=== PATIENT | female | born 1995 | race Caucasian/White ===

== ENCOUNTER 2019-10-03 23:44 | Emergency (ER) | payer MEDICAID ==
[~2019-10-03] VITALS: Ht 165.1 cm; Wt 69.4 kg
[2019-10-03 23:53] VITALS: Ht 165.1 cm; Wt 69.4 kg
[2019-10-04 01:27] VITALS: BP 110/61
== END 2019-10-04 01:28 | disposition left against medical advice (07) ==
LOC: ED 23:44
DX: Z53.21 Procedure and treatment not carried out due to patient leaving prior to being seen by health care provider (principal)